=== PATIENT | male | born 1995 | race American Indian/Alaskan Native ===

== ENCOUNTER 2019-08-05 06:56 | Emergency (ER) | payer OTHER ==
[2019-08-05] MEDS ORDERED: BENADRYL PO ONE (08:35)
[2019-08-05] MEDS ORDERED: DECADRON IM ONE (08:36)
[2019-08-05] MEDS ORDERED: PEPCID PO ONE (08:36)
--- NOTE | 2019-08-05 08:49 | Emergency Department Report ---
ED ENT HPI - General Chief complaint: Sore Throat Stated complaint: FEEL LIKE THROAT CLOSING UP Time Seen by Provider: 08/05/19 08:20 Source: patient Mode of arrival: Ambulatory Limitations: No Limitations - History of Present Illness Initial comments: 23-year-old male with a past medical history of asthma presents to the hospital complaining of sudden onset of throat swelling at 4 AM. Patient feels like something is touching the back of his tongue and is worse when he is lying supine. He denies any recent throat trauma, smoking, fever, difficulty breathing, difficulty swallowing. Patient does not take any medications. Patient denies recent cough or cold symptoms. - Related Data Previous Rx's Medication Instructions Recorded Last Taken Type Amoxicillin [Trimox CAP] 500 mg PO BID #20 capsule 08/05/19 Unknown Rx Famotidine [Pepcid] 20 mg PO BID #10 tablet 08/05/19 Unknown Rx diphenhydrAMINE [Benadryl CAP] 25 mg PO Q6HR PRN #30 capsule 08/05/19 Unknown Rx predniSONE [Deltasone] 40 mg PO QDAY #5 tab 08/05/19 Unknown Rx Allergies Allergy/AdvReac Type Severity Reaction Status Date / Time No Known Allergies Allergy Unverified 08/05/19 07:04 ED Dental HPI - General Chief complaint: Sore Throat Stated complaint: FEEL LIKE THROAT CLOSING UP Time Seen by Provider: 08/05/19 08:20 Source: patient Mode of arrival: Ambulatory Limitations: No Limitations - Related Data Previous Rx's Medication Instructions Recorded Last Taken Type Amoxicillin [Trimox CAP] 500 mg PO BID #20 capsule 08/05/19 Unknown Rx Famotidine [Pepcid] 20 mg PO BID #10 tablet 08/05/19 Unknown Rx diphenhydrAMINE [Benadryl CAP] 25 mg PO Q6HR PRN #30 capsule 08/05/19 Unknown Rx predniSONE [Deltasone] 40 mg PO QDAY #5 tab 08/05/19 Unknown Rx Allergies Allergy/AdvReac Type Severity Reaction Status Date / Time No Known Allergies Allergy Unverified 08/05/19 07:04 ED Review of Systems ROS: Stated complaint: FEEL LIKE THROAT CLOSING UP Other details as noted in HPI Comment: All other systems reviewed and negative ED Past Medical Hx - Past Medical History Previous Medical History?: Yes Hx Asthma: Yes - Surgical History Past Surgical History?: Yes Hx Appendectomy: Yes - Social History Smoking Status: Never Smoker Substance Use Type: Alcohol, Marijuana - Medications Home Medications: Home Medications Medication Instructions Recorded Confirmed Last Taken Type Amoxicillin [Trimox CAP] 500 mg PO BID #20 capsule 08/05/19 Unknown Rx Famotidine [Pepcid] 20 mg PO BID #10 tablet 08/05/19 Unknown Rx diphenhydrAMINE [Benadryl CAP] 25 mg PO Q6HR PRN #30 capsule 08/05/19 Unknown Rx predniSONE [Deltasone] 40 mg PO QDAY #5 tab 08/05/19 Unknown Rx ED Physical Exam - General Limitations: No Limitations - Other Other exam information: Gen.: No acute distress Head: Atraumatic Eyes: Normal appearance ENT: Moist mucous membranes, uvula edema with elongated.. No exudates, no signs of airway obstruction, stridor Neck: Normal appearance, no posterior midline tenderness, no meningismus, no lymphadenopathy Chest: Clear to auscultation bilaterally Cardiovascular: Regular rate and rhythm Abdomen: Normal appearance, soft, nontender, no rebound or guarding, normal bowel sounds Back: Normal appearance, nontender Extremity: Full range of motion, normal appearance Neuro: Alert, clear speech, no focal motor or sensory deficit Psychiatric: Appropriate Skin: No rash ED Course Vital Signs 08/05/19 07:05 Temperature 99.2 F Pulse Rate 67 Respiratory 16 Rate Blood Pressure 118/88 [Right] O2 Sat by Pulse 100 Oximetry ED Medical Decision Making - Medical Decision Making Patient received treatment with Decadron, Benadryl, and Pepcid swelling improved and patient feeling better Will be treated with medications to help with swelling and covered with amoxicillin for infection - Differential Diagnosis allergic reaction, angioedema, viral versus bacterial uvulitis Critical Care Time: No Critical care attestation.: If time is entered above; I have spent that time in minutes in the direct care of this critically ill patient, excluding procedure time. ED Disposition Clinical Impression: Uvulitis Disposition: DC-01 TO HOME OR SELFCARE Is pt being admited?: No Does the pt Need Aspirin: No Condition: Stable Instructions: Uvulitis (ED) Additional Instructions: Take the medication as prescribed. Follow-up with your doctor or with the doctor/clinic provided. Return if symptoms worsen as indicated by your discharge instructions. Prescriptions: diphenhydrAMINE [Benadryl CAP] 25 mg PO Q6HR PRN #30 capsule PRN Reason: Allergy Symptoms predniSONE [Deltasone] 40 mg PO QDAY #5 tab Famotidine [Pepcid] 20 mg PO BID #10 tablet Amoxicillin [Trimox CAP] 500 mg PO BID #20 capsule Referrals: PRIMARY CARE, [Primary Care Provider] - 3-5 Days [facility] [Provider Group] - 3-5 Days Time of Disposition: 10:10
[2019-08-05 10:33] VITALS: BP 123/80
== END 2019-08-05 10:33 | disposition home or self-care (01) ==
LOC: ED 06:56
DX: K12.2 Cellulitis and abscess of mouth (principal); J45.909 Unspecified asthma, uncomplicated; F12.10 Cannabis abuse, uncomplicated; Z90.49 Acquired absence of other specified parts of digestive tract; Z79.899 Other long term (current) drug therapy
CPT/HCPCS: 96372; 99282; J1100